=== PATIENT | male | born 1965 | race Caucasian/White ===

== ENCOUNTER 2016-03-16 11:20 | Outpatient (CLI) | payer SELFPAY ==
[2016-03-16 12:23] LABS: Bilirubin Negative (Negative); Blood, Urine Negative (Negative); Glucose, Urine (Dipstick) Negative (Negative); Ketone, Urine Negative (Negative); Nitrite Negative (Negative); Protein, Urine (Dipstick) Negative (Neg-Trace); Urobilinogen 0.2 mg/dL (0.2-1.0)
[2016-03-16 12:34] LABS: RBC/HPF None Seen HPF (0-3)
[2016-03-16 12:47] LABS: Bacteria/HPF Rare-Few HPF (None Seen); Renal Epithelial 0-3 HPF (0-3); Squamous Epithelial 0-3 HPF (0-3)
== END 2016-03-16 11:21 | disposition home or self-care (01) ==
LOC: BURLAB 11:20
PROVIDERS: ATTEND Urology
DX: R31.0 Gross hematuria (principal)
CPT/HCPCS: 81001; 87077; 87086; 87186

== ENCOUNTER 2018-04-30 05:20 | Emergency (ER) | payer OTHER ==
[2018-04-30] MEDS ORDERED: HYDROcodone/Acetaminophen 10/325 mg Tablet ONE (05:55)
--- NOTE | 2018-04-30 08:59 | RAD ---
RIGHT KNEE FOUR VIEWS: History: Fall with injury to knee. FINDINGS: Joint spaces are normally maintained. Mild degenerative change noted with mild spurring from the cond yles and patella. There is a large joint effusion. No acute fracture identified. IMPRESSION: No acute fracture identified. Large joint effusion is noted. POS: [facility]
== END 2018-04-30 05:58 | disposition home or self-care (01) ==
LOC: BURERS 05:20
DX: S80.01XA Contusion of right knee, initial encounter (principal); I10 Essential (primary) hypertension; E11.9 Type 2 diabetes mellitus without complications; F41.9 Anxiety disorder, unspecified; F32.9 Major depressive disorder, single episode, unspecified; Z79.899 Other long term (current) drug therapy; W20.8XXA Other cause of strike by thrown, projected or falling object, initial encounter

== ENCOUNTER 2019-12-31 15:57 | Emergency (ER) | payer OTHER, SELFPAY ==
[2019-12-31 16:32] LABS: #Eosinphils 0.1 thou/uL (0.0-0.7); #Lymphocytes 1.8 thou/uL (1.20-3.40); #Monocytes 0.7 thou/uL (0.11-0.59); #Neutrophils 3.5 thou/uL (1.40-6.50); %Basophils 0.8 % (0.0-1.0); %Eosinophils 1.2 % (0.0-10.0); %Lymphocytes 29.4 % (21.0-51.0); %Monocytes 10.7 % (0.0-10.0); %Neutrophils 57.9 % (42.0-75.0); Mean Corpuscular HGB CONC 33.6 g/dL (32.0-36.0); Mean Corpuscular Hemoglobin 33.7 pg (27.0-31.0); Mean Platelet Volume 6.4 fL (7.4-10.4); Platelet Count 124 thou/uL (130-400); Red Blood Cell (RBC) Count 3.85 mill/uL (4.70-6.10); White Blood Cell (WBC) Count 6.1 thou/uL (4.8-10.8)
[2019-12-31 16:48] LABS: ALT (SGPT) 45 U/L (8-55); AST (SGOT) 56 U/L (5-34); Albumin 4.1 g/dL (3.5-5.0); Alkaline Phosphatase 118 U/L (40-110); Anion Gap 19 mmol/L (10-20); BUN (Urea Nitrogen) 9 mg/dL (8.4-25.7); Bilirubin, Total 0.4 mg/dL (0.2-1.2); Calc. Creatinine Clearance 0 mL/min (70-130); Calcium 9.1 mg/dL (7.8-10.44); Carbon Dioxide 20 mmol/L (22-29); Chloride 103 mmol/L (98-107); Estimated GFR-MDRD 73; Globulin 3.3 g/dL (2.4-3.5); Glucose 115 mg/dL (70-105); Potassium 3.9 mmol/L (3.5-5.1); Protein, Total 7.4 g/dL (6.0-8.3); Sodium 138 mmol/L (136-145)
[2019-12-31 16:51] LABS: Bilirubin Negative (Negative); Blood, Urine Negative (Negative); Clarity Clear (Clear); Glucose, Urine (Dipstick) Negative (Negative); Ketone, Urine Negative (Negative); Leukocyte Negative (Negative); Nitrite Negative (Negative); Protein, Urine (Dipstick) Negative (Neg-Trace); Urobilinogen 0.2 mg/dL (Less than 2)
--- NOTE | 2019-12-31 17:01 | CT ---
CT cervical spine noncontrast HISTORY: Fall. Neck injury. FINDINGS: Vertebral body heights and alignment are maintained. Cervicothoracic junction is intact. Disc space narrowing most pronounced at the C5-6 level. There is osteophytosis throughout the vertebr al bodies and facets. No acute fracture or dislocation. Central canal and foraminal stenoses most pronounced at the C5-6 level. Prominent calcification of the arterial structures, including significant luminal narrowing in the pr oximal left internal carotid artery. IMPRESSION : Prominent degenerative changes cervical spine. No acute osseous abnormalities are demonstrated. Prominent atherosclerosis with probable very high-grade stenosis of the left internal carotid artery.
--- NOTE | 2019-12-31 17:05 | CT ---
CT HEAD WITHOUT CONTRAST: 12/31/19 HISTORY: Fall with injury to head. Comparison made to head CT of 04/03/13. FINDINGS: The ventricles have normal size and position. There is no evidence of intracranial hemorrhage. No eladia ma, mass or infarct. The paranasal sinuses are clear. IMPRESSION: No acute abnormality. POS: [facility]
--- NOTE | 2019-12-31 17:18 | CT ---
CT THORAX WITH CONTRAST CT ABDOMEN WITH CONTRAST CT PELVIS WITH CONTRAST CT THORACIC SPINE WITH CONTRAST CT LUMBAR SPINE WITH CONTRAST: (Trauma protocol) DATE: 12/31/2019 4:56 PM HISTORY: Trauma to the chest, abdomen, and pelvis. 54-year-old male status post fall. TECHNIQUE: IV administration of iodinated contrast media. No oral contrast media. Single phase scans of thorax, abdomen, and pelvis. Sagittal reconstructions of thoracic and lumbar spine. FINDINGS: Thoracic and lumbar spine: There is an acute compression fracture of L1 vertebral body, with mild anterior wedging, approximatel y 20% anterior loss of height, and slight bony retropulsion, which technically makes this a burst fracture. The rest of the lumbar and vertebral body heights are maintained. Thorax: Lungs are essentially clear. No pleural effusion, pneumothorax, thoracic aortic dissection or rupture , mediastinal hematoma or lymphadenopathy, cardiomegaly, or pericardial effusion. No sternal fracture, clavicular or scapular fracture, or grossly displaced rib fracture. Abdomen: Absent right kidney. Fatty liver. Compensatory hypertrophy of left kidney. Mild to moderate dilation of left renal collecting system and left renal pelvis. Moderate dilation of left ureter. Nonspecific 1.4 cm left adrenal nodule. No traumatic injury to liver, abdominal aorta, pancreas, sple en, or left kidney. No retroperitoneal hematoma or free fluid. No small bowel dilation. Single metallic foreign body at t he lateral aspect of right lower quadrant peritoneal cavity. Pelvis: No pelvic fracture. No free fluid. Dilated left ureter down to the UVJ. Diffuse mural thickening of a mildly distended urinary bladder. IMPRESSION: 1) acute, traumatic compression/burst fracture of L1 lumbar vertebra. 2) mild-moderate left hydroureteronephrosis involving solitary left kidney. Apparent possible obstruc tion at left ureterovesical junction. 3) diffuse mural thickening of urinary bladder could represent chronic or acute cystitis. 4) recommend follow-up of the left hydronephrosis with ultrasound after emptying of the urinary bladd er.
[2019-12-31] MEDS ORDERED: Ketorolac Tromethamine 30 MG/ML VIAL ONE (17:58)
== END 2019-12-31 18:30 | disposition short-term general hospital (02) ==
LOC: BURERS 15:57
DX: S32.011A Stable burst fracture of first lumbar vertebra, initial encounter for closed fracture (principal); S00.83XA Contusion of other part of head, initial encounter; N13.30 Unspecified hydronephrosis; Q60.0 Renal agenesis, unilateral; I65.22 Occlusion and stenosis of left carotid artery; I10 Essential (primary) hypertension; E11.9 Type 2 diabetes mellitus without complications; E78.00 Pure hypercholesterolemia, unspecified; W01.0XXA Fall on same level from slipping, tripping and stumbling without subsequent striking against object, initial encounter
CPT/HCPCS: 36415; 70450; 71260; 72125; 74177; 80053; 80307; 81003; 85025; 96374; J1885

== ENCOUNTER 2022-05-30 12:31 | Emergency (ER) | payer OTHER, SELFPAY ==
[2022-05-30] MEDS ORDERED: Morphine 2 MG/ML VIAL ONE (13:50)
[2022-05-30] MEDS ORDERED: Morphine 4 MG/ML VIAL ONE (13:50)
== END 2022-05-30 14:02 | disposition home or self-care (01) ==
LOC: BURERS 12:31
DX: T25.221A Burn of second degree of right foot, initial encounter (principal); Y93.G3 Activity, cooking and baking; I10 Essential (primary) hypertension; E11.9 Type 2 diabetes mellitus without complications; E78.00 Pure hypercholesterolemia, unspecified; J44.9 Chronic obstructive pulmonary disease, unspecified; Z79.899 Other long term (current) drug therapy; X19.XXXA Contact with other heat and hot substances, initial encounter
CPT/HCPCS: 96372; 99283; J2270; J2272

== ENCOUNTER 2022-06-01 16:41 | Emergency (ER) | payer SELFPAY ==
[2022-06-01] MEDS ORDERED: Ondansetron PF 4 MG/2 ML Vial ONE (16:57)
[2022-06-01] MEDS ORDERED: Lorazepam 2 MG/ML VIAL ONE (17:16)
[2022-06-01] MEDS ORDERED: Glycopyrrolate 0.4 MG/ 2 ML VIAL ONE (17:16)
[2022-06-01] MEDS ORDERED: Famotidine/PF 20 mg/2ml Vial ONE (17:16)
[2022-06-01] MEDS ORDERED: Thiamine HCl 200 MG/2 ML VIAL ONE (17:16)
[2022-06-01 17:22] LABS: #Lymphocytes 1.8 thou/uL (1.20-3.40); #Monocytes 0.6 thou/uL (0.11-0.59); #Neutrophils 8.4 thou/uL (1.40-6.50); %Basophils 0.2 % (0.0-1.0); %Eosinophils 0.2 % (0.0-10.0); %Lymphocytes 16.5 % (21.0-51.0); %Monocytes 5.6 % (0.0-10.0); %Neutrophils 77.5 % (42.0-75.0); Hemoglobin 14.7 g/dL (14.0-18.0); Mean Corpuscular HGB CONC 31.6 g/dL (32.0-36.0); Mean Corpuscular Hemoglobin 32.3 pg (27.0-31.0); Mean Platelet Volume 10.7 fL (7.4-10.4); Platelet Count 63 10x3/uL (130-400); RBC Distribution Width 12.2 % (11.5-14.5); Red Blood Cell (RBC) Count 4.55 mill/uL (4.70-6.10); White Blood Cell (WBC) Count 10.8 10x3/uL (4.8-10.8)
[2022-06-01 17:38] LABS: ALT (SGPT) 64 U/L (8-55); AST (SGOT) 87 U/L (5-34); Albumin 3.9 g/dL (3.5-5.0); Alcohol Less than 10 mg/dL (Less than 10); Alkaline Phosphatase 204 U/L (40-110); Anion Gap 17 mmol/L (10-20); BUN (Urea Nitrogen) 9 mg/dL (8.4-25.7); Bilirubin, Total 5.4 mg/dL (0.2-1.2); Calc. Creatinine Clearance 0 mL/min (70-130); Calcium 9.6 mg/dL (7.8-10.44); Carbon Dioxide 21 mmol/L (22-29); Chloride 100 mmol/L (98-107); Estimated GFR 58; Globulin 3.7 g/dL (2.4-3.5); Glucose 146 mg/dL (70-105); Lipase 147 U/L (8-78); Potassium 3.7 mmol/L (3.5-5.1); Protein, Total 7.6 g/dL (6.0-8.3); Sodium 134 mmol/L (136-145)
[2022-06-01 17:40] LABS: MDiff Complete? YES; Platelet Morphology Comment Appears Decreased
[2022-06-01 18:55] LABS: Clarity Slightly Cloudy (Clear)
[2022-06-01 18:56] LABS: Glucose, Urine (Dipstick) Unable to Interpret mg/dL (Negative); Leukocyte Unable to Interpret (Negative); Nitrite Unable to Interpret (Negative); Protein, Urine (Dipstick) Unable to Interpret mg/dL (Neg-Trace)
[2022-06-01 18:57] LABS: Bilirubin Unable to Interpret (Negative); Blood, Urine Unable to Interpret (Negative); Ketone, Urine Unable to Interpret mg/dL (Negative); Urobilinogen UNABLE TO INTERPRET mg/dL (Less than 2)
[2022-06-01] MEDS ORDERED: Silver Sulfadiazine 50 GM JAR ONE (19:00)
[2022-06-01 19:13] LABS: Bacteria/HPF 3+ HPF (None Seen); Mucous/LPF 1+ LPF (<2+); RBC/HPF None Seen HPF (0-3)
== END 2022-06-01 19:09 | disposition home or self-care (01) ==
LOC: BURERS 16:41
DX: K70.30 Alcoholic cirrhosis of liver without ascites (principal); F10.20 Alcohol dependence, uncomplicated; Y90.0 Blood alcohol level of less than 20 mg/100 ml; T25.221D Burn of second degree of right foot, subsequent encounter; E78.00 Pure hypercholesterolemia, unspecified; E11.9 Type 2 diabetes mellitus without complications; I10 Essential (primary) hypertension; J44.9 Chronic obstructive pulmonary disease, unspecified
CPT/HCPCS: 36415; 80053; 80307; 81003; 81015; 82140; 83690; 84484; 85025; 94760; 96361; 96374; 96375; J2060; J2405; J3411; S0028

== ENCOUNTER 2022-06-08 15:49 | Outpatient (CLI) | payer OTHER ==
[2022-06-08 16:23] LABS: ALT (SGPT) 42 U/L (8-55); AST (SGOT) 30 U/L (5-34); Albumin 3.9 g/dL (3.5-5.0); Alkaline Phosphatase 127 U/L (40-110); Anion Gap 13 mmol/L (10-20); BUN (Urea Nitrogen) 8 mg/dL (8.4-25.7); Bilirubin, Total 0.8 mg/dL (0.2-1.2); Calc. Creatinine Clearance 0 mL/min (70-130); Calcium 9.7 mg/dL (7.8-10.44); Carbon Dioxide 28 mmol/L (22-29); Chloride 100 mmol/L (98-107); Estimated GFR 84; Glucose 170 mg/dL (70-105); Potassium 3.5 mmol/L (3.5-5.1); Protein, Total 7.9 g/dL (6.0-8.3); Sodium 137 mmol/L (136-145)
== END 2022-06-08 15:50 | disposition home or self-care (01) ==
LOC: BURLAB 15:49
PROVIDERS: ATTEND Family Medicine
DX: I10 Essential (primary) hypertension (principal)
CPT/HCPCS: 36415; 80053

== ENCOUNTER 2023-01-08 17:15 | Outpatient (CLI) | payer OTHER | END 2023-01-08 17:16 | disposition home or self-care (01) | LOC: BURRAD 17:15 | PROVIDERS: ATTEND Family Medicine | DX: J45.41 Moderate persistent asthma with (acute) exacerbation (principal) | CPT/HCPCS: 71046 ==